=== PATIENT | female | born 1980 | race Caucasian/White ===

== ENCOUNTER 2024-06-03 08:53 | Outpatient (AMB) | payer OTHER, SELFPAY ==
--- NOTE | 2024-06-03 08:56 | A.SPINEOV_ITS ---
Intake Visit Reasons: Back pain Intake Note: Ms. Wylie is here today c/o of back pain. [employer]member Required: No Assessment & Plan Assessment & Plan (1) Left hip pain: Code(s): M25.552 - Pain in left hip Category: Medical Plan This is a very nice 43-year-old female presents to the office today for evaluation of a left hip pain which radiates down to her lateral thigh going into her knee. It started about a year ago or so. It is aggravated with standing, walking but prolonged sitting or getting in and out of a car etc. can be difficult as well. Sleeping is difficult. She has tried some conservative management in the form of [id number]-evp-[id number] medications like ibuprofen, Tylenol, physical therapy. She underwent an injection at Dr. Spear's office, sounds like a lidocaine injection in her left SI joint but it had no effect. He sent her for an MRI which showed some mild disc bulging. She came to us today to see if there was anything that was wrong with her back that might explain her current symptoms. She has no tingling numbness or weakness. It is just a stabbing like pain that starts in her lateral hip and radiates down her lateral thigh and goes on the underside of her knee. 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 Her pain localizes itself to the greater trochanteric region of her left hip. I am able to reproduce it with manipulation of her leg. Both internal and external rotation. Imaging review: Lumbar MRI at [place], Very mild changes at L3-4 with no signs of any overt nerve compression, the radiologist suggests that there may be some contact of the left L3 nerve root in the foramen but it is not anything meaningful in the sense that there is no actual compression of the nerve. Impression: 43-year-old female presents with lateral hip pain which radiates down her lateral leg and wraps from the bottom aspect of her knee. Her symptoms are not particularly typical of nerve symptoms and that there is no associated weakness, numbness or tingling. It is very mechanical and I can reproduce it with movement of her leg. She did not respond to an SI joint injection so that does not seem to fit with a diagnosis of SI joint instability. The MRI is fairly underwhelming as there was no actual nerve compression that I can see that would benefit from surgery. At this point I think she would be best served maybe following up with Orthopedics. We can see her back down the road if something changes. Thank you for allowing us to care for your patient. The total time spent with this visit with this patient was 30 minutes reviewing history, physical exam, lumbar imaging review, and implementation of treatment plan or further diagnostic testing Kwadwo Yepez MD,PhD [facility] Coding Level of Care Code New Pt Level 3 (72108) Diagnoses Left hip pain M25.552
== END 2024-06-03 09:41 | disposition home or self-care (01) ==
PROVIDERS: Referring Provider Physical Medicine & Rehabilitation; Visit Provider Physician Assistant
DX: M25.552 Pain in left hip (principal)
CPT/HCPCS: 99203

== ENCOUNTER → 2024-06-03 08:53 | Outpatient (BNVA) | payer OTHER, SELFPAY | PROVIDERS: Visit Provider Physician Assistant ==